=== PATIENT | male | born 1960 | race Caucasian/White ===

== ENCOUNTER 2016-07-05 07:02 | Day surgery (SDC) | payer BC ==
[2016-06-30 08:18] LABS: BASOPHILS 0.4 %; BASOPHILS ABSOLUTE 0.03 10/3/uL (0.0-0.16); EOSINOPHILS 2.2 %; EOSINOPHILS ABSOLUTE 0.15 10/3/uL (0.0-0.53); HEMOGLOBIN 14.8 g/dL (13.6-17.8); IMMATURE GRANULOCYTES 0.3 %; IMMATURE GRANULOCYTES ABSOLUTE 0.02 10/3/uL (0.0-0.11); LYMPHOCYTES 30.8 %; LYMPHOCYTES ABSOLUTE 2.06 10/3/uL (0.67-4.30); MEAN CORPUS HGB CONC 34.8 g/dL (32.0-36.0); MEAN CORPUSCULAR HEMOGLOB 30.8 pg (26.0-34.0); MEAN CORPUSCULAR VOLUME 88.5 fL (80-100); MEAN PLATELET VOLUME 10.6 fL (9.2-13.0); NEUTROPHILS 57.3 %; NEUTROPHILS ABSOLUTE 3.82 10/3/uL (2.02-8.40); PLATELET COUNT 209 10/3/uL (150-400); RBC DISTRIBUTION WIDTH 13.1 % (12.0-16.0); WHITE BLOOD CELLS 6.7 10/3/uL (4.5-10.5)
[2016-06-30 08:19] LABS: HEMATOCRIT 42.5 % (40.0-51.0); MANUAL DIFF NO %
[2016-06-30 08:32] LABS: BUN (BLOOD UREA NITROGEN) 26 MG/DL (6-23); CALCIUM, SERUM 9.1 MG/DL (8.5-10.4); CHLORIDE, SERUM 103 MMOL/L (96-112); CO2 (CARBON DIOXIDE) 35 MMOL/L (24-34); CREATININE 1.38 MG/DL (0.70-1.30); GFR AFRICAN AMERICAN 65 ML/MIN (>=60); GFR NON AFRICAN AMERICAN 56 ML/MIN (>=60); GLUCOSE, SERUM 106 MG/DL (60-99); SODIUM, SERUM 142 MMOL/L (135-148)
--- NOTE | ~2016-07-05 | OP ---
Record Of Operation [facility] [address] [place]. [address] NAME: STEPHEN JORDAN : 56 STATUS : [facility]#: [id number] AGE: 56 ADM/REG DATE : 07/05/16 MR#: [id number] REPORT SERV DATE: 07/05/16 DICTATED BY: ELFEGO FRIEDMAN DATE: 07/05/16 REPORT STATUS : Draft TRANSCRIBED BY: MODL DATE: 07/05/16 DATE OF PROCEDURE: 07/05/2016 PREOPERATIVE DIAGNOSES: 1. Elevated PSA (5.7). 2. Obstructing left ureteral stone with severe hydronephrosis. POSTOPERATIVE DIAGNOSES: 1. Elevated PSA (5.7). 2. Obstructing left ureteral stone with severe hydronephrosis. PROCEDURE PERFORMED: 1. Transrectal ultrasound of the prostate with needle biopsy. 2. Right ureteroscopy with laser lithotripsy and basket stone fragment extraction. 3. Cystoscopy with right retrograde pyelogram and right ureter stent placement. SURGEON: Elfego Friedman M.D. ANESTHESIA: General. COMPLICATIONS: None. DRAINS: 1. Acuna catheter. 2. Right ureteral stent. SPECIMENS: 1. Sextant prostate needle biopsies. 2. Right ureteral stone fragments for chemical analysis. INDICATIONS: Mr. Jordan is a 56-year-old, with incidentally noted severe right hydronephrosis. There is an obstructing stone at the right proximal ureter. He has an elevated PSA of 5.7, he has not had urinary tract infections. He presents for transrectal ultrasound of the prostate with needle biopsies, along with right ureteroscopy, with laser lithotripsy to treat the asymptomatic, but obstructing right proximal ureteral stone. TECHNIQUE: Ancef and gentamicin were given prep. He was brought to the operating room and general endotracheal anesthesia was administered. He was placed in the left lateral decubitus position. Digital rectal exam showed a 30 g prostate, smooth, and benign. Transrectal endocavitary probe was inserted, ultrasonographic images of the prostate were obtained. Seminal vesicles were not dilated. Prostate volume was calculated at 41 mL. No suspicious calcifications. The sextant prostate needle biopsies were obtained in the usual fashion. Two biopsies were obtained from each sextant. Digital pressure was held against the prostate for one minute. I returned him supine, he was moved to the operative table, and placed in the lithotomy position. He was prepped and draped in a sterile fashion. The rigid cystoscopy was performed. The urethra was normal. There was a very high bladder Record Of Operation [facility] [address] [place] [place]. [address] NAME: STEPHEN JORDAN : 56 STATUS : [facility] PAT#: [id number] AGE: 56 ADM/REG DATE : 07/05/16 MR#: [id number] REPORT SERV DATE: 07/05/16 DICTATED BY: ELFEGO FRIEDMAN [email or web address] DATE: 07/05/16 REPORT STATUS : Draft TRANSCRIBED BY: MODL DATE: 07/05/16 neck. The bladder was trabeculated. There was no stone or lesion in the bladder. Right retrograde pyelogram was performed. There was a calcified stone at the right UPJ with severe hydronephrosis and caliectasis. A 0.038 straight Glidewire was passed beyond the stone. The cystoscope was removed. I passed an 11.5-Comoran ureteral access sheath up to the right proximal ureter. Flexible ureteroscopy was performed. The stone was impacted in the UPJ that was follicular cystitis at the site of impaction. The stone was pushed back up into the renal pelvis. It was sitting dependently at the bladder base. I passed a 200 micron holmium laser fiber and laser lithotripsy was performed. The stone was fragmented into pieces. The 8 mm stone was fragmented to approximately eight pieces with the bulk of the stone merely dusted. The renal pelvis was held between 500 and 1000 mL. I evacuated all of this sediment laden urine through the ureteroscope. I then used a NGage basket to basket extract all visible fragments. No retrograde pyelogram was repeated. There was still severe hydronephrosis. It should be noted that I converted from the 11.5-Comoran 35 cm access sheath to a 14-Comoran 45 cm ureteral access sheath in order to basket extract the fragments without further lithotripsy. The access sheath was removed leaving the wire in place. Under fluoroscopic guidance I placed a 7-Comoran variable length right ureteral stent. The dangling string was removed. Coil was confirmed fluoroscopically in the renal pelvis and fluoroscopically in the bladder. I placed Acuna catheter as there was some prostatic bleeding and a very high bladder neck. This will be removed on postop day #1. He will follow up in 10 days for cystoscopy with stent removal in the office. He will not need a KUB prior to stent removal. FRANCISCO J/TI Elfego Friedman M.D. / [id number] CC: Klaus Farah M.D.
[~2016-07-05 07:02] MED LIST: ASAB PO; DIOVAN HCT320 MG/25 PO; L20 PO; LIPITOR10 PO; LOP25 PO; PENICILLIN PO
[2016-07-19 13:06] LABS: SOURCE OF STONE RIGHT URETERAL
[2016-07-19 13:07] LABS: STONE NIDUS NOT OBSERVED
== END 2016-07-05 15:45 | disposition home or self-care (01) ==
LOC: SDC 07:02
PROVIDERS: Urology
PROC: 0TC68ZZ Extirpation of Matter from Right Ureter, Via Natural or Artificial Opening Endoscopic (ICD-10-PCS; 2016-07-05)
PROC: 0VB03ZX Excision of Prostate, Percutaneous Approach, Diagnostic (ICD-10-PCS; principal; 2016-07-05 09:00)
PROC: BT1DYZZ Fluoroscopy of Right Kidney, Ureter and Bladder using Other Contrast (ICD-10-PCS; 2016-07-05 09:00)
PROC: 0T768DZ Dilation of Right Ureter with Intraluminal Device, Via Natural or Artificial Opening Endoscopic (ICD-10-PCS; 2016-07-05 09:00)
DX: C61 Malignant neoplasm of prostate (principal); N13.2 Hydronephrosis with renal and ureteral calculous obstruction; E78.00 Pure hypercholesterolemia, unspecified; I11.0 Hypertensive heart disease with heart failure; I50.9 Heart failure, unspecified; G47.33 Obstructive sleep apnea (adult) (pediatric); Z88.8 Allergy status to other drugs, medicaments and biological substances; Z91.041 Radiographic dye allergy status; Z79.899 Other long term (current) drug therapy; Z87.442 Personal history of urinary calculi
CPT/HCPCS: 74420; 76872; 76942; 80048; 82365; 85025; 88305; 88344; 93005; A9270-GY; C1758; C1769; C1894; C2617; J0690; J0735; J1580; J2250; J2370; J2405; J2710; J3010; Q9967